=== PATIENT | female | born 1960 | race Caucasian/White ===

== ENCOUNTER 2019-10-26 13:04 | Outpatient (CLI) | payer MEDICARE, MEDICAID, SELFPAY ==
--- NOTE | 2019-10-26 13:13 | MM_ITS ---
WS: [id number] SCREENING DIGITAL MAMMOGRAM WITH CAD HISTORY: SCREENING COMPARISON: 10/24/2018 and 08/30/2017 Bilateral CC and MLO views submitted. Computer aided detection analyzed. Breast composition: There are scattered areas of fibroglandular density. No suspicious masses, microc alcifications or architectural distortion. MM/[place] [id number] IMPRESSION: BI-RADS: 1-Negative FOLLOW UP: 1 Year Follow-up
== END 2019-10-26 13:05 | disposition home or self-care (01) ==
LOC: RADSHAW 13:11
PROVIDERS: PCP Family Medicine; Visit Provider Family Medicine
DX: Z12.31 Encounter for screening mammogram for malignant neoplasm of breast (principal)
CPT/HCPCS: 77067

== ENCOUNTER 2020-10-02 15:41 | Outpatient (CLI) | payer MEDICARE, MEDICAID, SELFPAY ==
--- NOTE | 2020-10-02 15:52 | MR_ITS ---
WS: [id number] MRI LEFT SHOULDER NONCONTRAST TECHNIQUE: Sagittal T2, coronal T1, T2 and proton density imaging. Axial gradient PDE imaging. CLINICAL INFORMATION: SHOULDER JOINT PAIN,LEFT COMPARISON: MRI 6 018 FINDINGS: Rotator cuff anchors are new compared to previous. Susceptibility artifact degrades images. Mild dege nerative arthritis of the AC joint. Mild downsloping acromion. Slight subacromial spurring. Trace sub acromial subdeltoid fluid. No evidence of recurrent rotator cuff tear. Normal infraspinatus and teres minor. Normal subscapulari s. Tiny biceps tendon within the bicipital groove unchanged from previous. Intra-articular biceps ten don appears intact. Normal biceps labral anchor. Glenoid labrum appears grossly intact. MR/MR shoulder LT wo con* [id number] IMPRESSION: 1. Rotator cuff anchors are new from previous. No evidence of recurrent rotato r cuff tear. 2. Mild degenerative arthritis AC joint with a small amount of subacromial/sub deltoid fluid. Slight subacromial spurring. 3. Tiny biceps tendon within the bicipital groove unchanged from previous. 4. No other significant change from previous.
== END 2020-10-02 15:42 | disposition home or self-care (01) ==
LOC: RADSHAW 15:45
PROVIDERS: PCP Nurse Practitioner Family; Visit Provider Nurse Practitioner Family
DX: M25.512 Pain in left shoulder (principal); M19.012 Primary osteoarthritis, left shoulder
CPT/HCPCS: 73221

== ENCOUNTER 2020-11-04 11:12 | Outpatient (CLI) | payer MEDICARE, MEDICAID, SELFPAY ==
--- NOTE | 2020-11-04 11:16 | MM_ITS ---
WS: [id number] BILATERAL SCREENING DIGITAL MAMMOGRAM WITH CAD HISTORY: SCREENING COMPARISON: 10/26/2019 and 10/24/2018 Bilateral CC and MLO views submitted. Computer aided detection analyzed. Breast composition: There are scattered areas of fibroglandular density. No suspicious masses, microc alcifications or architectural distortion. Stable small cluster of calcifications in the lateral LEFT breast. MM/[place] [id number] IMPRESSION: BI-RADS: 2-Benign FOLLOW UP: 1 Year Follow-up
== END 2020-11-04 11:13 | disposition home or self-care (01) ==
LOC: RADSHAW 11:15
PROVIDERS: PCP Nurse Practitioner Family; Visit Provider Nurse Practitioner Family
DX: Z12.31 Encounter for screening mammogram for malignant neoplasm of breast (principal)
CPT/HCPCS: 77067

== ENCOUNTER 2020-11-07 07:45 | Outpatient (CLI) | payer MEDICARE, MEDICAID, SELFPAY ==
--- NOTE | 2020-11-07 08:02 | US_ITS ---
WS: [id number] INDICATION: Lump left upper arm TECHNIQUE: Ultrasound area of concern left axilla and left scapula patient directed FINDINGS: Ultrasound areas of concern left axilla and left scapula. A few prominent left axillary lym ph nodes with preserved fatty hilum and normal cortex. Largest measures 1.8 x 0.7 x 1.3 cm. No pathol ogic lymph nodes. In the area of the left scapula, normal underlying subcutaneous fat. Suspected lipoma corresponds to the area of palpable concern measuring 1.9 x 2.1 x 0.7 CM. US/US soft tissue/extremity [id number] IMPRESSION: 1. Normal left axillary lymph nodes. 2. Suspected small benign lipoma in the area of palpable concern at the scapul a described above
== END 2020-11-07 07:46 | disposition home or self-care (01) ==
LOC: RAD 07:51
PROVIDERS: PCP Nurse Practitioner Family; Visit Provider Nurse Practitioner Family
DX: R22.32 Localized swelling, mass and lump, left upper limb (principal)
CPT/HCPCS: 76882

== ENCOUNTER 2020-12-09 13:40 | Outpatient (CLI) | payer MEDICARE, MEDICAID, SELFPAY ==
--- NOTE | 2020-12-09 14:00 | CT_ITS ---
WS: [id number] CT CHEST WITH INTRAVENOUS CONTRAST HISTORY: R22.2 - Localized swelling, mass and lump TECHNIQUE: Contiguous 5 mm axial imaging performed on the thorax. Coronal and sagittal reformats are submitted. All CT scans at [facility] use at least one of these dose optimization techniq ues: automated exposure control; mA and/or kV adjustment per patient size (includes targeted exams wh ere dose is matched to clinical indication); or iterative reconstruction. CONTRAST: Omnipaque 300; 75 mL IV. DLP: 524.98 mGycm COMPARISON: None available. Lungs and central airway: Severe centrilobular and paraseptal emphysematous changes. Focal scarring a nd gliosis at the apices. No pulmonary mass or pneumonia. Pleura: Normal. No pleural effusion. Heart and pericardium: Normal size heart with no pericardial effusion. Mediastinum and chico: No mediastinum or hilar adenopathy. Vessels: Mild atherosclerosis thoracic aorta. No aneurysm. Normal size pulmonary artery. Chest wall and lower neck: Very small fat containing mass along the posterior inferior LEFT scapula m easures 20 x 10 mm. Most consistent with a lipoma in the latissimus dorsi muscle. This is closely ass ociated with the marker placed in the palpable area. There is an otherwise no asymmetry of the muscle s or additional soft tissue masses. Upper abdomen: Numerous scattered hepatic cysts. There is an additional area of intense enhancement o n arterial phase measuring 14 mm in the posterior RIGHT lobe the liver consistent with a hemangioma. Osseous structures: Prior LEFT rotator cuff repair. Single anchor is noted in the humeral head. CT/CT chest w con* [id number] IMPRESSION: 1. Palpable area along the posterior lateral LEFT back corresponds to a lipoma within the LEFT latissimus dorsi muscle. Lipoma measures 20 x 10 mm. 2. Severe centrilobular and paraseptal emphysema. 3. Hepatic cysts and hepatic hemangioma.
[2020-12-09 14:12] LABS: Blood Urea Nitrogen 14 mg/dL (8-23); Glomerular Filtration Rate 85.4 mL/min (90-130)
[2020-12-09] MEDS: iohexol 300 mg/mL 100 mL Btl IV (14:20)
== END 2020-12-09 13:41 | disposition home or self-care (01) ==
PROVIDERS: PCP Nurse Practitioner Family; Visit Provider Surgery
DX: R22.2 Localized swelling, mass and lump, trunk (principal); J43.9 Emphysema, unspecified; K76.89 Other specified diseases of liver; D18.09 Hemangioma of other sites
CPT/HCPCS: 71260; 82565; 84520; Q9967

== ENCOUNTER → 2020-12-30 09:13 | Outpatient (BNVA) | payer MEDICARE, MEDICAID, SELFPAY | PROVIDERS: PCP Nurse Practitioner Family; Visit Provider Surgery | DX: Z20.822 Contact with and (suspected) exposure to COVID-19 (principal); R22.32 Localized swelling, mass and lump, left upper limb | CPT/HCPCS: 87635 ==

== ENCOUNTER 2021-01-05 07:33 | Day surgery (SDC) | payer MEDICARE, MEDICAID, SELFPAY ==
[2021-01-02 14:23] VITALS: BMI 19.2
[2021-01-05] VITALS (7 sets, daily range): BP systolic 70–106; BP diastolic 46–59; PULSE 59–70; RESP 16–20; TEMP 36.4–36.5; O2SAT 96–98
[2021-01-05] MEDS: sodium chloride 0.9% 1,000 ML 30 ML IV (08:09)
--- NOTE | 2021-01-05 08:56 | ANES.PREANE2 ---
Pre-Anesthetic Assessment Pre-Anesthetic Assessment: Height/Weight: Height 1.47 m Weight 41.73 kg Temp Pulse Resp BP Pulse Ox 97.5 F L 67 18 106/52 97 01/05/21 07:59 01/05/21 07:59 01/05/21 07:59 01/05/21 07:59 01/05/21 07:59 Preop Diagnosis: Left-sided torso masses Proposed Procedure: Operation Date: 01/05/21 08:55 Proposed Procedures p EXCISION OF LEFT SIDED TORSO MASSES 48790 R22.32(Left) - Nolan Juan MD Was Beta Dayne taken within 24 hours: N/A Was Clonidine taken within 24 hours: N/A Last intake: Intake Last Liquid Date 01/04/21 Last Liquid Time 22:30 Last Solid Date 01/04/21 Last Solid Time 22:30 Social: Social History: Tobacco and No alcohol Exam: Pre-Anes Outpt Exam: alert, oriented x 3 and regular rate & rhythm Airway: Submandibular: WNL Cervical ROM: WNL MP: 2 Dentition: Chipped Pulmonary: Pulmonary: COPD GI: GI: GERD Musc/skel: Musc/skel: Fibromyalgia Anesthetic Plan: ASA status: 3 Anesthesia: Choice Risk of > 500 ml blood loss (7ml/kg in children): No Meds/Allergies Current Medications: Current Medications Generic Name Dose Route Start Last Admin Trade Name Freq PRN Reason Stop Dose Admin Sodium Chloride 1,000 mls @ 30 ml s/hr 01/05/21 08:00 01/05/21 08:09 Sodium Chloride 0.9% IV 01/06/21 07:59 30 mls/hr .Q24H ZHEN Administration PFSH Anesthesia PFSH: Family History Other CAD (coronary artery disease) Cancer Dementia Diabetes Stroke Denies family history of Psychiatric illness Lung disease Social History Alcohol intake: never Lives independently: Yes Data Anesthesia Cardiac Studies: No Data to Display
--- NOTE | 2021-01-05 09:07 | W.PM.OPSUD ---
Surgery/Procedure H&P Update DATE OF PROCEDURE: January 05, 2021 DATE H&P PERFORMED: 12/25/20 H&P UPDATE INFORMATION: I have reviewed H&P completed within last 30 days, I have examined patient prior to procedure and No changes to prior documentation PREOP DIAGNOSIS: Left-sided torso masses PRIMARY INDICATION FOR PROCEDURE: The same. PLANNED PROCEDURE: Operation Date: 01/05/21 08:55 Proposed Procedures p EXCISION OF LEFT SIDED TORSO MASSES 84109 R22.32(Left) - Nolan Juan MD
[2021-01-05] MEDS: clindamycin 600 MG/50 ML PREMIX 100 MG IV (09:10)
[2021-01-05] MEDS: lidocaine 2% INJ 20 mL INJECTION (09:24)
--- NOTE | 2021-01-05 09:38 | PM.OP ---
Operative Report Date of procedure: January 05, 2021 Pre-op Diagnosis: Left-sided torso masses Post-op diagnosis: other (Left-sided torso lipoma 3 x 3 cm) Procedure Done: Excision of left sided torso lipoma Specimens removed/disposition: Lipoma 3 x 3 cm Surgeon: Nolan Juan Youth Services Librarian: bulk mail technician Raul, medical student Lina Deluna Circulating nurse John Diego Anesthesia: General (agriculture department chair Brandon) Estimated blood loss (mL): 5 Condition: stable Disposition: same day Brief History: Symptomatic left-sided torso mass Procedure: After identifying the patient holding area, left-sided torso/back mass was marked before the procedure by myself, patient was then taken to the operative suite, was placed in right lateral position, IV antibiotics were given per protocol,IV propofol was infused by the anesthesia provider, prep and drape of the left upper and mid back regions were done under the usual sterile technique. All pressure points were already padded. And patient was secured appropriately to the bed. Time-out was done verifying the patient's name/date of /planned procedure and destination after the procedure, all were in agreement. After palpation of the mass. Infiltration of lidocaine 2%. I did a transverse incision on top of the mass. I was able to dissect using sharp dissection and the whole lipomatous mass was excised from the surrounding tissues, mostly subcutaneous in location, measuring 3 x 3 cm. The mass was dissected and sent for permanent pathology after being passed to the circulating nurse. Thorough irrigation of the cavity was done and hemostasis, followed by deep dermal closure by 3-0 Vicryl, then 4-0 Monocryl for subcuticular closure. Followed by surgical glue. Followed by pressure dressing. Patient tolerated the procedure well, count of instruments, needles and sponges were completed at the end of the procedure. And then patient was taken to the recovery area in stable condition. I was present for the whole entire procedure
--- NOTE | 2021-01-05 15:26 | ANE.PACU2 ---
Inpatient post-anesthesia follow up: Airway intact: Yes Vital signs: Temperature 97.7 F Pulse Rate 59 Respiratory Rate 18 Blood Pressure 88/57 Pulse Oximetry 98 Oxygen Delivery Me thod Room Air Oxygen Flow Rate Fraction of Inspir ed Oxygen Hydration adequate: Yes Nausea and vomiting: No Pain level: 2 Mental status: Baseline
== END 2021-01-05 10:50 | disposition home or self-care (01) ==
PROVIDERS: PCP Nurse Practitioner Family; Visit Provider Surgery
PROC: (CPT 11403; principal; 2021-01-05 08:45)
DX: D17.1 Benign lipomatous neoplasm of skin and subcutaneous tissue of trunk (principal); J44.9 Chronic obstructive pulmonary disease, unspecified; K21.9 Gastro-esophageal reflux disease without esophagitis; M79.7 Fibromyalgia
CPT/HCPCS: 11403; 12032; 88304; 88307; J2250; J2704; J3490; J7030

== ENCOUNTER 2021-11-06 13:26 | Outpatient (CLI) | payer MEDICARE, MEDICAID, SELFPAY ==
--- NOTE | 2021-11-06 13:39 | MM_ITS ---
WS: [id number] BILATERAL 3D TOMOSYNTHESIS DIGITAL SCREENING MAMMOGRAPHY WITH CAD CLINICAL INFORMATION: SCREENING HISTORY: Screening mammogram. No current complaints. COMPARISON: November 04, 2020 TECHNIQUE: Bilateral CC and MLO views. FINDINGS: Scattered fibroglandular densities bilaterally. A few incidental punctate calcifications. No suspicio us focal mass, asymmetry, calcifications, or architectural distortion. No evidence of malignancy. MM/[place] [id number] IMPRESSION: BI-RADS: 2-Benign FOLLOW UP: 1 Year Follow-up Recommend return to annual screening mammography.
== END 2021-11-06 13:27 | disposition home or self-care (01) ==
PROVIDERS: PCP Family Medicine; Visit Provider Nurse Practitioner Family
DX: Z12.31 Encounter for screening mammogram for malignant neoplasm of breast (principal)
CPT/HCPCS: 77063; 77067

== ENCOUNTER 2022-01-29 15:34 | Outpatient (CLI) | payer MEDICARE, MEDICAID, SELFPAY ==
--- NOTE | 2022-01-29 16:13 | XRR_ITS ---
PROCEDURE INFORMATION: Exam: XR Left Hip Exam date and time: 01/29/2022 4:14 PM Age: 62 years old Clinical indication: Hip pain; Left hip; Additional info: Groin pain, left TECHNIQUE: Imaging protocol: Radiologic exam of the Left hip. Views: 2 or 3 views hip with pelvis when performed. COMPARISON: CT lumbar spine w con [id number] 04/16/2015 10:45 AM FINDINGS: Bones/joints: Negative for fracture. Joint space is preserved. Soft tissues: Unremarkable. XR/XR hip LT 2-3V wo/w pel* [id number] IMPRESSION: Unremarkable radiographs of the left hip.
== END 2022-01-29 15:35 | disposition home or self-care (01) ==
PROVIDERS: PCP Family Medicine; Visit Provider Family Medicine
DX: R10.32 Left lower quadrant pain (principal); M25.552 Pain in left hip
CPT/HCPCS: 73502

== ENCOUNTER 2022-03-31 12:51 | Outpatient (CLI) | payer MEDICARE, MEDICAID, SELFPAY ==
--- NOTE | 2022-03-31 12:59 | MR_ITS ---
WS: [id number] MRI LUMBAR SPINE NONCONTRAST HISTORY: LEFT LUMBAR RADICULOPATHY COMPARISON: 09/12/2014 TECHNIQUE: Sagittal and axial multisequence imaging is submitted. Normal lumbar alignment with no compression fractures or marrow edema. Mild disc desiccation at L4-5. Conus terminates normally at L1. L1-L2: Normal. L2-L3: Mild ligamentum flavum and facet arthritis. L3-L4: Moderate bilateral ligamentum flavum and facet joint arthritis. L4-L5: Mild annular disc bulging. Mild ligamentum flavum and facet arthritis. Mild encroachment into the thecal sac and subarticular recess narrowing. L5-S1: No stenosis. Ligamentum flavum and facet arthritis. Small facet joint cyst on the RIGHT. Small cyst posterior to S2. MR/MR lumbar spine wo con* [id number] IMPRESSION: 1. Mild central and subarticular recess narrowing at L4-5. Mild encroachment u ellis the traversing L5 nerve roots. 2. No high-grade stenosis.
== END 2022-03-31 12:52 | disposition home or self-care (01) ==
LOC: RAD 12:51
PROVIDERS: PCP Family Medicine; Visit Provider Family Medicine
DX: M54.16 Radiculopathy, lumbar region (principal); M48.061 Spinal stenosis, lumbar region without neurogenic claudication
CPT/HCPCS: 72148

== ENCOUNTER → 2022-05-13 10:05 | Outpatient (BNVA) | payer MEDICARE, MEDICAID, SELFPAY | PROVIDERS: PCP Family Medicine; Visit Provider Orthopaedic Surgery | DX: M48.062 Spinal stenosis, lumbar region with neurogenic claudication (principal) | CPT/HCPCS: 72110; 99204 ==

== ENCOUNTER 2022-09-15 14:58 | Observation (INO) | payer MEDICARE, MEDICAID, SELFPAY ==
[2022-09-14 09:54] VITALS: BMI 21.9
--- NOTE | 2022-09-14 10:27 | P.ANESASSM_ITS ---
Pre-Anesthetic Assessment Height/Weight: Height 1.47 m Weight 47.627 kg Operation Date: 09/15/22 13:10 Proposed Procedures p Anterior and posterior colporrhaphy 36342, Sling 77241, N99.3(Not Applicable) - Papo Dobbins MD s Posterior Repair Posterior Colporrhaphy(Not Applicable) - Papo Dobbins MD s Sling(Not Applicable) - Papo Dobbins MD Familial anesthetic complications: None Social No alcohol and No tobacco former smoker Exam alert, oriented x 3, clear to auscultation bilaterally and regular rate & rhythm Airway Mallampati: Class II Dentition: chipped and partials Pulmonary Chronic Obstructive Pulmonary Disease (Severe in L lung) CV/HEM None reported None reported GI Gastroesophageal Reflux Disease Metabolic None reported Musc/skel Fibromyalgia Neuropsych None reported Anesthetic Plan ASA status: 3 Anesthesia: General Risk of > 500 ml blood loss (7ml/kg in children): No Medications/Allergies Home Medications Medication Instructions Recorded Confirmed Last Taken Type estradiol 1 mg tablet 1 mg PO DAILY 11/27/20 09/14/22 01/04/21 History fluticasone propionate 50 1 spray intranasal DAILY 11/27/20 09/14/22 01/04/21 History mcg/actuation nasal spray,suspension loratadine 10 mg tablet (Allergy 10 mg PO DAILY 11/27/20 09/14/22 01/04/21 History Relief (loratadine)) omeprazole 40 mg capsule,delayed 40 mg PO DAILY 11/27/20 09/14/22 01/04/21 History release albuterol sulfate 90 mcg/actuation 1 puff inhalation PRN 01/02/21 09/14/22 01/04/21 History aerosol inhaler umeclidinium 62.5 mcg/actuation inhalation 01/02/21 09/14/22 01/04/21 History blister powder for inhalation (Incruse Ellipta) diclofenac potassium 50 mg tablet 50 mg PO DAILY PRN Dry Eyes 08/04/22 09/14/22 Unknown History triamcinolone acetonide 0.1 % 1 applic dental BID PRN Mouth 08/04/22 09/14/22 Unknown History dental paste Irritation baclofen 10 mg tablet 10 mg PO .PRN 08/16/22 09/14/22 Unknown History Eye Allergy Relief 05/30/23 Unknown History artificial tears(hypromellose) 0.3 1 drp ophthalmic (eye) BID PRN Dry 09/14/22 09/14/22 Unknown History % eye drops Eyes ipratropium bromide 42 mcg (0.06 intranasal 3XD dry eyes 09/14/22 Unknown History %) nasal spray Allergies Allergy/AdvReac Type Severity Reaction Status Date / Time amoxicillin Allergy Intermediate Unknown Verified 09/14/22 08:19 cinnamon Allergy ADR-Itching Verified 09/14/22 08:19 [facility] Anesthesia Medical History Fibromyalgia Mass on back Seasonal allergies Surgical History History of colonoscopy History of eyelid surgery 2013 History of hysterectomy 2000 History of rotator cuff surgery left History of surgery cyst removal History of surgery on right wrist cyst removal Family History Mother Heart disease Hypertension Stroke Father Heart disease Hypertension Stroke Sister Hypertension Brother Hypertension Family/Other Breast cancer Aunt/Paternal Other CAD (coronary artery disease) Cancer Dementia Diabetes Denies family history of Colon cancer Ovarian cancer Uterine cancer Thyroid disease Social History Substance/Drug Use: never Data Anesthesia Cardiac Studies: No Data to Display
[2022-09-14 10:47] LABS: Add Urine Microscopic? NO; Charge for UA Resulting for Rev
[2022-09-14 10:49] LABS: Basophils # 0.1 10^3/uL (0.0-0.1); Basophils % 0.6 %; Eosinophils # 0.1 10^3/uL (0.0-0.8); Hematocrit 37.9 % (37.0-47.0); Hemoglobin 12.2 g/dL (11.5-15.3); Lymphocytes # 1.8 10^3/uL (0.8-4.8); Mean Corpuscular HGB Conc 32.2 g/dL (30.0-36.0); Mean Corpuscular Hemoglobin 28.7 pg (28.0-34.0); Mean Corpuscular Volume 89.2 fl (81-99); Mean Platelet Volume 9.9 fL (7.4-10.4); Monocytes # 0.6 10^3/uL (0.2-0.9); Neutrophils # 6.26 10^3/uL (1.8-7.7); Neutrophils % 70.9 %; Nucleated Red Blood Cells % 0 %; Platelet Count 341 10^3/cmm (130-400); Red Blood Count 4.25 10^6/uL (4.1-5.3); Red Cell Distribution Width 13.2 % (12.1-15.1); White Blood Count 8.8 10^3/uL (4.0-10.0)
[2022-09-14 10:54] LABS: Bilirubin Urine Neg (Negative); Blood Urine Neg (Negative); Glucose Urine UA Norm (Normal); Ketones Urine Negative (Negative); Leukocyte Esterase Urine Negative (Negative); Nitrate Urine Negative (Negative); Protein Urine Neg (Negative); Specific Gravity, Urine 1.015 (1.005-1.030); Urine Appearance Clear (CLEAR); Urine Color Yellow (Yellow); Urobilinogen Urine Norm (Negative); pH Urine 6 (5-7)
[2022-09-14 11:14] LABS: Alanine Aminotransferase 11 U/L (0-33); Albumin Level 4.5 g/dL (3.5-5.2); Alkaline Phosphatase 69 U/L (35-105); Anion Gap 14.2 (5-19); Aspartate Amino Transferase 13 U/L (0-32); Blood Urea Nitrogen 16 mg/dL (8-23); Calcium 8.9 mg/dL (8.5-10.5); Carbon Dioxide 28 mmol/L (22-29); Chloride 102 mmol/L (98-107); Globulin 2.8 g/dL (1.3-4.6); Glucose 83 mg/dL (65-115); Osmolality Calculated 290 mOsm/kg (285-295); Potassium 4.2 mmol/L (3.5-5.1); Sodium 140 mmol/L (136-145); Total Bilirubin 0.3 mg/dL (0.15-1.2); Total Protein 7.3 g/dL (6.6-8.7)
[2022-09-15] VITALS (15 sets, daily range): BP systolic 91–140; BP diastolic 50–81; PULSE 56–83; RESP 12–17; TEMP 36.1–36.4; O2SAT 95–100
--- NOTE | 2022-09-15 11:20 | W.PM.OPSUD ---
Surgery/Procedure H&P Update DATE OF PROCEDURE: September 15, 2022 DATE H&P PERFORMED: 09/14/22 H&P UPDATE INFORMATION: I have reviewed H&P completed within last 30 days, I have examined patient prior to procedure and No changes to prior documentation PREOP DIAGNOSIS: Rectocele stage III, cystocele stage I, stress incontinence PLANNED PROCEDURE: Operation Date: 09/15/22 12:20 Proposed Procedures p Anterior and posterior colporrhaphy 82663, Sling 68104, N99.3(Not Applicable) - Papo Dobbins MD s Posterior Repair Posterior Colporrhaphy(Not Applicable) - Papo Dobbins MD s Sling(Not Applicable) - Papo Dobbins MD
[2022-09-15] MEDS: sodium chloride 0.9% 500 ML IV (11:25)
--- NOTE | 2022-09-15 11:25 | P.ANESUD_ITS ---
Pre-Anesthetic Update Pre-Anesthetic Assessment: Date of Surgery/Procedure: 09/15/22 Preop Renetta gnosis: Rectocele stage III, cystocele stage I, stress incontinence Proposed Procedure: Operation Date: 09/15/22 12:20 Proposed Procedures p Anterior and posterior colporrhaphy 47977, Sling 01285, N99.3(Not Applicable) - Papo Dobbins MD s Posterior Repair Posterior Colporrhaphy(Not Applicable) - Papo Dobbins MD s Sling(Not Applicable) - Papo Dobbins MD Any changes to Pre-Anesthetic Assessment?: No Last Intake: Intake Last Liquid Date 09/14/22 Last Liquid Time 23:00 Last Solid Date 09/14/22 Last Solid Time 23:00 Labs Last 48hrs: Short CBC 09/14/22 Range/Units 10:25 WBC 8.8 (4.0-10.0) 10^3/ uL Hgb 12.2 (11.5-15.3) g/dL Hct 37.9 (37.0-47.0) % MCV 89.2 (81-99) fl Plt Count 341 (130-400) 10^3/c mm Neut % (Auto) 70.9 % Neut # (Auto) 6.26 (1.8-7.7) 10^3/u L BMP 09/14/22 10:25 Sodium 140 Potassium 4.2 Chloride 102 Carbon Dioxide 28 BUN 16 Creatinine 0.5 Glucose 83 Calcium 8.9 Liver Function 09/14/22 Range/Units 10:25 Total Bilirubin 0.3 (0.15-1.2) mg/dL AST 13 (0-32) U/L ALT 11 (0-33) U/L Alkaline Phosphata se 69 (35-105) U/L Albumin 4.5 (3.5-5.2) g/dL Urine 09/14/22 Range/Units 10:25 Urine Color Yellow (Yellow) Urine Appearance Clear (CLEAR) Urine pH 6 (5-7) Ur Specific Gravit y 1.015 (1.005-1.030) Urine Protein Neg (Negative) Urine Glucose (UA) Norm (Normal) Urine Ketones Negative (Negative) Urine Nitrate Negative (Negative) Urine Bilirubin Neg (Negative) Ur Leukocyte Yoanna ase Negative (Negative) Blood Bank 09/14/22 10:25 Blood Type O Positive Rho(D) Type Positive Antibody Screen Negative Vitals: Temperature 97.5 F L 09/15/22 11:04 Temperature Source Temporal Artery S can 09/15/22 11:04 Pulse Rate 70 09/15/22 11:04 Respiratory Rate 17 09/15/22 11:04 Blood Pressure 140/65 09/15/22 11:04 Blood Pressure Zita n 90 09/15/22 11:04 Pulse Oximetry 96 09/15/22 11:04 Oxygen Delivery Me thod Room Air 09/15/22 11:09 Exam: Pre-Anes Outpt Exam: alert, oriented x 3, clear to auscultation bilaterally and regular rate & rhythm Cardiac Studies: No Data to Display
[2022-09-15] MEDS: enoxaparin 30 mg/0.3 mL Syringe SUBCUT (11:26)
[2022-09-15] MEDS: vancomycin 1,000 MG in sodium chloride 0.9% 250 ML 250 MG IV (11:43)
[2022-09-15] MEDS: sodium chloride 0.9% 1,000 ML 30 ML IV (11:44)
[2022-09-15] MEDS: levofloxacin-dextrose 5 % 500 MG/100 ML PREMIX 100 MG IV (12:00)
[2022-09-15] MEDS: estrogens Conjugated Cream 30 gm 1 APPLIC VAGINAL (12:27)
[2022-09-15] MEDS: lidocaine-epi 2% 20 mL INJ INJECTION (12:27)
--- NOTE | 2022-09-15 14:05 | P.OP_ITS ---
Operative Report Date of procedure: September 15, 2022 Pre-op diagnosis: Preop Diagnosis Rectocele stage III, cystocele stage I, stress incontinence Post-op diagnosis: Same as above Post-op findings: Rectocele and 60 Procedure done: Anterior colporrhaphy augmented with allograft. Single incision mid urethral sling. Posterior colporrhaphy. Cystoscopy Implants: Coloplast Altis single incision mid urethral sling Surgeon: Papo Dobbins MD Estimated blood loss (mL): 50 Urine output (mL): 150 Complications: None Procedure: After obtaining informed consent, the patient was taken to the operating room and placed in the supine position, given general anesthesia, and prepped and draped in sterile fashion. The abdomen, vulva and vagina were prepped and draped in a sterile manner. A time out procedure was performed. The anterior vaginal mucosa beneath the midurethra was infiltrated with 2% lidocaine with epinephrine. A vertical midline incision was made beneath the midurethra, nearly 1.5 cm length. Careful submucosal dissection was performed bilaterally up to the interior portion of the inferior pubic ramus. The insertion of adductor longus tendon on the patient?s pubic ramus was identified as reference land dav. Palpated the notch along the internal edge of ischiopubic ramus where the adductor longus tendon and the inferior pubic ramus meet. The Altis single incision sling (SIS) was selected. Then the needle of the SIS inserted aiming at the location of this notch. One of the integrated self- fixating tips place onto the needle by sliding it over the end of the needle. The needle/sling assembly was inserted toward the location of identified reference notch making sure that the flat of the handle is perpendicular to the desired path. The needle was tracked along the posterior surface of the ischiopubic ramus until the midline dav on the mesh is approximately at the midline position under the urethra. The needle was removed and the same was repeated on the contralateral side until the appropriate sling tension under the urethra was achieved ensuring that the mesh lays flat. The needle was removed and vaginal incision was closed in a running interlocking fashion with 2-0 Vicryl. The vaginal mucosa was then injected in the midline with normal saline. The vaginal mucosa was scored in the midline with the Bovie approximately 1 cm medial to the urethral meatus to 1 cm distal to the vaginal cuff. This vaginal mucosa was then undermined and then incised in the midline with the Metzenbaum scissors. The lateral aspects of the vaginal mucosa were then grasped with the Allis clamps and the vaginal mucosa was then dissected off the underlying fascia with the Metzenbaum scissors. Again, there was noted to be quite a bit of oozing at the incision, which was controlled with cautery. After adequate dissection was performed, bilaterally. An Coloplast allograft was modified at time of application to fit spacea, 3 x 3 cm piece . The allograft placed in front of cystocele ready to be implanted facing the vagina mucosa. Suture is placed at distal end of graft and placed towards vaginal cuff. Final suture is placed on proximal portion of the graft to complete the placement overlying the bladder. Then Interrupted vertical mattress sutures of 0 Vicryl were used to elevate the cystocele superiorly. The excessive vaginal mucosa was then trimmed with the Metzenbaum scissors and the vaginal mucosa was then reapproximated in the running interlocking fashion with 2-0 Vicryl. Then proceeded to perform the posterior colporrhaphy. A solution was infiltrated under the posterior vaginal mucosa midline and into the perineal body. A transverse incision was cut in the perineum. The posterior vaginal wall was opened vertically and midline up to the apex of the rectocele. The cut edges were held and splayed laterally with a s eries of Allis clamps. The open vaginal mucosa was then dissected laterally with a combination of sharp and blunt dissection, exposing the perirectal fascia. The perirectal fascia was then reapproximated with interrupted #2-0 Vicryl sutures to draw the lateral folds together and tuck the rectocele back. Deep interrupted sutures of #0 Vicryl were used to reapproximate the fibers of the levator ani muscles. The excess vaginal mucosa was trimmed. The posterior vaginal wall was closed with a running locked #0 Vicryl to the hymenal tags. The superficial perineal muscles were closed with running unlocked #0 Vicryl and the perineal skin was closed with running subcuticular #2-0 Vicryl. Then the Tang catheter was removed and cystoscope was inserted. The bladder was filled with sterile water. Complete evaluation of the bladder mucosa was performed noting no lacerations, dimpling, tears, bleeding of the mucosa or muscular layers. Both ureteral orifices were identified. Prompt excretion of urine from both ureteral orifices was noted. Cystoscope was withdrawn. The Tang catheter was replaced. Excellent hemostasis was obtained. A vaginal pack is placed overnight as postoperative support for the vaginal tissues after graft placement and closure of vaginal incisions. Sponge, lap, needle, and instrument counts were correct times three. The patient was taken to the recovery room, awake and in stable condition. This documentation was created by [employer] maintenance shop welder software (known for inherent maintenance shop welder error). Every effort was made to assure accuracy of maintenance shop welder. Any obvious errors or omissions should be clarified with the author of the document.
--- NOTE | 2022-09-15 17:00 | ANE.PACU2 ---
Inpatient post-anesthesia follow up: Airway intact: Yes Vital signs: Temperature 97.1 F Pulse Rate 82 Respiratory Rate 18 Blood Pressure 116/72 Pulse Oximetry 95 Oxygen Delivery Me thod Room Air Oxygen Flow Rate 6 Fraction of Inspir ed Oxygen Hydration adequate: Yes Nausea and vomiting: Yes Pain level: 1 Mental status: Baseline
[2022-09-15] MEDS: docusate sodium 100 mg Capsule PO (18:14)
[2022-09-15] MEDS: dextrose 5%-lactated ringers 1,000 ML 125 ML IV (19:15)
[2022-09-15] MEDS: ketorolac 30 mg/mL INJ IVP (19:44)
[2022-09-16 00:06] VITALS: BP 116/73; PULSE 78; RESP 15; TEMP 36.6; O2SAT 96
[2022-09-16] MEDS: ketorolac 30 mg/mL INJ IVP (03:55)
[2022-09-16] MEDS: dextrose 5%-lactated ringers 1,000 ML 125 ML IV (03:55)
[2022-09-16 04:00] VITALS: BP 111/69; PULSE 76; RESP 15; TEMP 36.4; O2SAT 96
[2022-09-16 05:03] LABS: Hemoglobin 9.2 g/dL (11.5-15.3); Mean Corpuscular HGB Conc 31.7 g/dL (30.0-36.0); Mean Corpuscular Hemoglobin 28.1 pg (28.0-34.0); Mean Corpuscular Volume 88.7 fl (81-99); Mean Platelet Volume 9.4 fL (7.4-10.4); Platelet Count 247 10^3/cmm (130-400); Red Blood Count 3.27 10^6/uL (4.1-5.3); Red Cell Distribution Width 13.2 % (12.1-15.1); White Blood Count 10.3 10^3/uL (4.0-10.0)
--- NOTE | 2022-09-16 05:03 | PC.NURSE ---
Vaginal pack removed @0500 on 09-16-2022, small amount of blood noted on packing.
--- NOTE | 2022-09-16 09:51 | PM.OBGYDC ---
Discharge Providers WEIGHT CONTROL LECTURER Date of Admission: 09/15/22 14:58 Date of Discharge: 09/16/22 Attending Provider at Admission: Papo Dobbins MD Attending Provider at Discharge: Papo Dobbins MD Primary WEIGHT CONTROL LECTURER: Papo Dobbins MD Primary Care Provider: Eliceo Polanco MD Reason for Visit Reason for Visit: [id number]; N99.3 Hospital Course Hospital Course Mrs. Pierson is a 62-year-old female with a history of vaginal prolapse with rectocele and cystocele. Admitted for planned anterior colporrhaphy augmented with allograft, single incision mid urethral sling, and posterior colporrhaphy. The procedures were performed without complication. Overnight observation uneventful. Ambulating without difficulty. Tolerating diet well. Adequate urine output. PVR within normal limits. She was counseled regarding pelvic rest for 6 weeks (no sex, no tampons, no vaginal douches). Return to the emergency room if any fever, increased bleeding or pain. Physical Exam Narrative: GA: Alert and oriented ?3. HEENT: WNL. Heart: Regular rate and rhythm. Lungs: Clear to auscultation bilaterally. Abdomen: Bowel sounds present, minimal tenderness. LICENSED MASTER SOCIAL WORKER: spotting bleeding. Extremities: No edema, no cyanosis, no calves pain. Urinary Catheter Management: Tang: Cath Placed During This Visit: yes, but has since been removed by the nurse Reason for Continuing Indwelling Catheter: Decision to DC Catheter Urinary Catheter Date of Insertion: 09/15/22 Urinary Catheter Time of Insertion: 12:21 Date Urinary Catheter Removed: 09/16/22 Time Urinary Catheter Discontinued: 05:00 History History History 2 Term 2 0 Miscarriages/Ectopic 0 Living Children 2 Discharge Data Studies Completed and Pending Laboratory Results WBC 10.3 10^3/uL (4.0-10.0) H 09/16/22 04:55 RBC 3.27 10^6/uL (4.1-5.3) L 09/16/22 04:55 Hgb 9.2 g/dL (11.5-15.3) L 09/16/22 04:55 Hct 29.0 % (37.0-47.0) L 09/16/22 04:55 MCV 88.7 fl (81-99) 09/16/22 04:55 MCH 28.1 pg (28.0-34.0) 09/16/22 04:55 MCHC 31.7 g/dL (30.0-36.0) 09/16/22 04:55 RDW 13.2 % (12.1-15.1) 09/16/22 04:55 Plt Count 247 10^3/cmm (130-400) 09/16/22 04:55 MPV 9.4 fL (7.4-10.4) 09/16/22 04:55 Neut % (Auto) 70.9 % 09/14/22 10:25 Lymph % (Auto) 20.0 % 09/14/22 10:25 Dickenson % (Auto) 7.0 % 09/14/22 10:25 Eos % (Auto) 1.0 % 09/14/22 10:25 Baso % (Auto) 0.6 % 09/14/22 10:25 Neut # (Auto) 6.26 10^3/uL (1.8-7.7) 09/14/22 10:25 Lymph # (Auto) 1.8 10^3/uL (0.8-4.8) 09/14/22 10:25 Dickenson # (Auto) 0.6 10^3/uL (0.2-0.9) 09/14/22 10:25 Eos # (Auto) 0.1 10^3/uL (0.0-0.8) 09/14/22 10:25 Baso # (Auto) 0.1 10^3/uL (0.0-0.1) 09/14/22 10:25 Nucleated RBC % (auto) 0 % 09/14/22 10:25 Nucleated RBCs # 0.0 /100WBC 09/14/22 10:25 Sodium 140 mmol/L (136-145) 09/14/22 10:25 Potassium 4.2 mmol/L (3.5-5.1) 09/14/22 10:25 Chloride 102 mmol/L (98-107) 09/14/22 10:25 Carbon Dioxide 28 mmol/L (22-29) 09/14/22 10:25 Anion Gap 14.2 (5-19) 09/14/22 10:25 BUN 16 mg/dL (8-23) 09/14/22 10:25 Creatinine 0.5 mg/dL (0.5-0.9) 09/14/22 10:25 GFR Calculation 125.0 mL/min (90-130) 09/14/22 10:25 Glucose 83 mg/dL (65-115) 09/14/22 10:25 Calculated Osmolality 290 mOsm/kg (285-295) 09/14/22 10:25 Calcium 8.9 mg/dL (8.5-10.5) 09/14/22 10:25 Total Bilirubin 0.3 mg/dL (0.15-1.2) 09/14/22 10:25 AST 13 U/L (0-32) 09/14/22 10:25 ALT 11 U/L (0-33) 09/14/22 10:25 Alkaline Phosphatase 69 U/L (35-105) 09/14/22 10:25 Total Protein 7.3 g/dL (6.6-8.7) 09/14/22 10:25 Albumin 4.5 g/dL (3.5-5.2) 09/14/22 10:25 Globulin 2.8 g/dL (1.3-4.6) 09/14/22 10:25 Urine Color Yellow (Yellow) 09/14/22 10:25 Urine Appearance Clear (CLEAR) 09/14/22 10:25 Urine pH 6 (5-7) 09/14/22 10:25 Ur Specific [place] 1.015 (1.005-1.030) 09/14/22 10:25 Urine Protein Neg (Negative) 09/14/22 10:25 Urine Glucose (UA) Norm (Normal) 09/14/22 10:25 Urine Ketones Negative (Negative) 09/14/22 10:25 Urine Blood Neg (Negative) 09/14/22 10:25 Urine Nitrate Negative (Negative) 09/14/22 10:25 Urine Bilirubin Neg (Negative) 09/14/22 10:25 Urine Urobilinogen Norm mg/dL (Negative) 09/14/22 10:25 Ur Leukocyte Esterase Negative (Negative) 09/14/22 10:25 Blood Type O Positive 09/14/22 10:25 Rho(D) Type Positive 09/14/22 10:25 Antibody Screen Negative 09/14/22 10:25 Vitals Last Vital Signs Temp 97.5 F L 09/16/22 04:00 Pulse 76 09/16/22 04:00 Resp 15 09/16/22 04:00 BP 111/69 09/16/22 04:00 Pulse Ox 96 09/16/22 04:00 O2 Del Method Room Air 09/16/22 04:00 O2 Flow Rate 6 09/15/22 14:09 Discharge Plan Discharge Patient Disposition: Home Condition: Stable Prescriptions: New hydrocodone-acetaminophen 5-325 mg tablet 1 tab PO Q4H PRN (Reason: pain) Qty: 10 0RF docusate sodium [Colace] 100 mg capsule 100 mg PO BID Qty: 60 0RF acetaminophen 325 mg capsule 325 mg PO Q4H PRN (Reason: fever or pain) Qty: 60 0RF ibuprofen 800 mg tablet 800 mg PO TID PRN (Reason: pain) Qty: 60 0RF Continued omeprazole 40 mg capsule,delayed release(DR/EC) 40 mg PO DAILY estradiol 1 mg tablet 1 mg PO DAILY Rx Instructions: off 1 week; repeat cycle fluticasone propionate 50 mcg/actuation spray,suspension 1 spray intranasal DAILY Rx Instructions: administer into each nostril loratadine [Allergy Relief (loratadine)] 10 mg tablet 10 mg PO DAILY baclofen 10 mg tablet 10 mg PO .PRN diclofenac potassium 50 mg tablet 50 mg PO DAILY PRN (Reason: Dry Eyes) triamcinolone acetonide 0.1 % paste 1 applic dental BID PRN (Reason: Mouth Irritation) Rx Instructions: use after food and/or drink and/or oral hygiene artificial tears(hypromellose) 0.3 % drops 1 drp ophthalmic (eye) BID PRN (Reason: Dry Eyes) albuterol sulfate 90 mcg/actuation HFA aerosol inhaler 1 puff INHALATION PRN Incruse Ellipta 62.5 mcg/actuation blister with device INHALATION ipratropium bromide 42 mcg (0.06 %) spray,non-aerosol INTRANASAL 3XD Eye Allergy Relief Discharge Orders: Discharge Order (Routine); Ordered 09/16/22 Ordered By: Papo Dobbins Referrals: Papo Dobbins MD [Physician] - 2 weeks Discharge Diet: Soft Mechanical Discharge Activity: Limit activity as instructed Patient Instructions: Opioid Safety, Anterior Vaginal Repair (GEN), Bladder Sling for Women (GEN), Posterior Vaginal Repair (GEN) Activity Restrictions/Additional Instructions: 1. Please call [facility] on next working day to make your post-operative appointment in 2 weeks. 2. Please stay home until you come back to the clinic on first post-hospatilization check up. 3. Please follow instructions on your medications CAREFULLY. 4. If you have abdominal incision, do not cover it unless dressing is necessary because of drainage. OK to shower, but avoid bath. Leave steri-strips until they fall off. If they are still on one week after surgery, you may remove them. 5. If you had vaginal surgery or vaginal repair, Dr. Dobbins may instruct you to take SITZ bath. 6. Yellow, blood tinged odorous vaginal discharge is usually normal after hysterectomy or vaginal surgeries. 7. No SEXUAL INTERCOURSE, tampons, or douches until you are completely released from the post-operative care. 8. Avoid constipation by eating right and maybe using some Metamucil or Milk of Magnesia. 9. All prescription refills are given during the working hours. Please do no wait till it runs out. Call the clinic at [phone] before your medication runs out. The clinic will get in touch with your doctor to prescribe medications if necessary. 10. Please remain within 40 mile radius from our hospital because emergencies do happen now and then during the post-operative period. 11. If you have stairs at home, take one step at a time slowly and minimize the number of trips. It helps to stay in one floor for the next few days. No lifting except what you can lift by one hand until you are released from the post-operative care. 12. Driving is discouraged until you are well healed. It may be 3-4 weeks before you feel strong enough to drive. You should be able to turn and look through the rear window without pain and you should be able to push the brake pedal very hard without pain before you drive. No fast rules, but SAFETY should be your primary concern. DO NOT drive if you are on sedating medications such as narcotics. 13. Call the clinic (during working hours) to make urgent appointment or go to the Emergency room, if any of the following occurs: i. Vaginal bleeding becomes heavy, more than a period. ii. Incision becomes red and sore, or drains pus. iii. Your TEMPERATURE is over 100.4F or you have chill. iv. IV site becomes red and swollen (a little ``knot?? is usually OK) v. Persistent nausea and vomiting vi. Persistent constipation or diarrhea vii. Rash or allergic reaction to medications. Discharge Attestations WEIGHT CONTROL LECTURER Time Spent in Discharge Care*: greater than 30 min Coding Level of Care Code Acute Code for Chg Fwd Diagnoses
[2022-09-16 12:00] VITALS: BP 116/72; PULSE 82; RESP 18; TEMP 36.2; O2SAT 95
== END 2022-09-16 12:10 | disposition home or self-care (01) ==
LOC: OBGYN 19:43
PROVIDERS: Admitting Provider Obstetrics & Gynecology; PCP Family Medicine; Visit Provider Obstetrics & Gynecology
PROC: 0JQC0ZZ Repair Pelvic Region Subcutaneous Tissue and Fascia, Open Approach (ICD-10-PCS; CPT 57240; principal; 2022-09-15 12:00)
PROC: (CPT 57250; 2022-09-15 12:00)
PROC: (CPT 57288; 2022-09-15 12:00)
PROC: 0TJB8ZZ Inspection of Bladder, Via Natural or Artificial Opening Endoscopic (ICD-10-PCS; CPT 52000; 2022-09-15 12:00)
DX: N81.10 Cystocele, unspecified (principal); N81.6 Rectocele; N39.3 Stress incontinence (female) (male); Z79.890 Hormone replacement therapy; Z79.51 Long term (current) use of inhaled steroids; Z78.0 Asymptomatic menopausal state; M79.7 Fibromyalgia
CPT/HCPCS: 51992; 57260; 57267; 36415; 51798; 80053; 81003; 85025; 85027; 86850; 86900; 96374; 96376; C1713; C1762; G0378; J1100; J1650; J1885; J1956; J2405; J2704; J2710; J3010; J3370; J3490; J7030; J7040; J7050; J7121

== ENCOUNTER → 2022-10-13 15:17 | Outpatient (BNVA) | payer MEDICARE, MEDICAID, SELFPAY | PROVIDERS: PCP Family Medicine; Visit Provider Internal Medicine Pulmonary Disease | DX: J43.9 Emphysema, unspecified (principal); Z87.891 Personal history of nicotine dependence | CPT/HCPCS: 99204 ==

== ENCOUNTER → 2022-10-26 13:45 | Outpatient (BNVA) | payer MEDICARE, MEDICAID, SELFPAY | PROVIDERS: PCP Family Medicine; Visit Provider Obstetrics & Gynecology | DX: R30.0 Dysuria (principal) | CPT/HCPCS: 84315; 87086 ==

== ENCOUNTER 2022-11-02 12:59 | Outpatient (CLI) | payer MEDICARE, MEDICAID, SELFPAY ==
[2022-11-02 13:05] VITALS: BP 134/75
[2022-11-02 13:28] VITALS: PULSE 72; RESP 18; O2SAT 97
[2022-11-02] MEDS: albuterol 2.5 mg/3 mL Neb INHALATION (13:28)
[2022-11-02 13:33] VITALS: PULSE 73
== END 2022-11-02 13:00 | disposition home or self-care (01) ==
PROVIDERS: PCP Family Medicine; Visit Provider Internal Medicine Pulmonary Disease
DX: R06.02 Shortness of breath (principal); Z87.891 Personal history of nicotine dependence; R94.2 Abnormal results of pulmonary function studies
CPT/HCPCS: 94060; 94618; 94726; 94729; J7613

== ENCOUNTER 2022-11-03 12:49 | Outpatient (CLI) | payer MEDICARE, MEDICAID, SELFPAY ==
--- NOTE | 2022-11-03 13:00 | CT_ITS ---
WS: [id number] LDCT LUNG CANCER SCREENING HISTORY: cancer screen TECHNIQUE: Axial imaging performed from the apices to 1 cm below the costophrenic angles. Coronal and sagittal reformats are submitted with axial MIP series. All CT scans at [facility] use at least one of these dose optimization techniques: automated exposure control; mA and/or kV adjustment per patient size (includes targeted exams where dose is matched to clinical indication); or iterativ e reconstruction. DLP: 35.69 mGy.cm DIvol: Mean CTDIvol: 0.50 (mGy) COMPARISON: 12/09/2020 Diagnostic quality: Satisfactory Lungs: Hyperexpanded lungs with emphysema. There are a few scattered bulla and blebs. No mass or nodu le. Mild peripheral reticulations from interstitial lung disease. No endobronchial lesions. Heart: Normal size heart with no pericardial effusion.. Other findings: Moderate atherosclerosis aorta. No aneurysm. No adenopathy. Hepatic granulomata. Mild anterior wedging of T5. CT/CT lung screening [id number] IMPRESSION: LUNG-RADS: 1-Negative FOLLOW UP: 12 Month: Continue annual screening with LDCT OTHER FINDINGS (S MODIFIER): None.
== END 2022-11-03 12:50 | disposition home or self-care (01) ==
PROVIDERS: PCP Family Medicine; Visit Provider Internal Medicine Pulmonary Disease
DX: Z12.2 Encounter for screening for malignant neoplasm of respiratory organs (principal); Z87.891 Personal history of nicotine dependence
CPT/HCPCS: 71271

== ENCOUNTER → 2023-01-07 11:10 | Outpatient (BNVA) | payer MEDICARE, MEDICAID, SELFPAY | PROVIDERS: PCP Family Medicine; Visit Provider Internal Medicine Pulmonary Disease | DX: J43.9 Emphysema, unspecified (principal); Z12.2 Encounter for screening for malignant neoplasm of respiratory organs; Z87.891 Personal history of nicotine dependence | CPT/HCPCS: 99214 ==

== ENCOUNTER → 2023-03-22 14:23 | Outpatient (BNVA) | payer MEDICARE, MEDICAID, SELFPAY | PROVIDERS: PCP Family Medicine; Visit Provider Orthopaedic Surgery | DX: M48.062 Spinal stenosis, lumbar region with neurogenic claudication (principal); M54.2 Cervicalgia; M47.816 Spondylosis without myelopathy or radiculopathy, lumbar region | CPT/HCPCS: 72040; 72100; 99214 ==

== ENCOUNTER 2023-04-20 13:34 | Outpatient (CLI) | payer MEDICARE, MEDICAID, SELFPAY ==
--- NOTE | 2023-04-20 13:45 | MR_ITS ---
WS: [id number] MRI CERVICAL SPINE NONCONTRAST TECHNIQUE: Sagittal T1, T2 and STIR imaging. Axial T2, gradient, and fiesta imaging. CLINICAL INFORMATION: cervical pain COMPARISON: MRI 2019 FINDINGS: Straightening of the normal cervical lordosis. No high-grade central canal narrowing. Cord signal is normal. C2-C3: Mild osteophytic ridging. Mild facet arthropathy. Mild LEFT bony foraminal narrowing. C3-C4: Mild disc osteophytic ridging. Moderate facet arthropathy worse on the LEFT. Mild bilateral pily ny foraminal narrowing LEFT greater than RIGHT. C4-C5: Mild disc osteophytic ridging. Moderate to advanced LEFT facet arthropathy. Mild LEFT and no s ignificant RIGHT foraminal narrowing. C5-C6: Disc osteophyte complex with endplate ridging. Mild RIGHT and no significant LEFT foraminal na rrowing. Spinal canal is patent. Moderate facet arthropathy. C6-C7: Tiny shallow central disc bulging. Spinal canal and foramen are patent. Mild facet arthropathy . C7-T1: Normal.. Visualized brain stem structures: Normal. Prevertebral soft tissues: Normal. IMPRESSION: 1. Straightening of the normal cervical lordosis. Cord signal is normal. 2. Mild spondylitic changes progressed compared to 2019. 3. Mild bony foraminal narrowing worse at bilateral C3-4, LEFT C4-5, and RIGHT C5-6. 4. Moderate facet arthropathy worse at LEFT C3-4 and moderate to advanced facet arthropathy LEFT C4- 5. Mild edema in the LEFT C3-4 facets. 5. Tiny central protrusions C3-C4 C4-C5 and C5-C6 without significant central canal stenosis.
== END 2023-04-20 13:35 | disposition home or self-care (01) ==
LOC: RAD 13:35
PROVIDERS: PCP Family Medicine; Visit Provider Orthopaedic Surgery
DX: M47.812 Spondylosis without myelopathy or radiculopathy, cervical region (principal); M48.02 Spinal stenosis, cervical region
CPT/HCPCS: 72141

== ENCOUNTER → 2023-04-22 10:31 | Outpatient (BNVA) | payer MEDICARE, MEDICAID, SELFPAY | PROVIDERS: PCP Family Medicine; Visit Provider Family Medicine | DX: Z01.818 Encounter for other preprocedural examination (principal) | CPT/HCPCS: 80053; 81000; 85025 ==

== ENCOUNTER 2023-04-27 05:46 | Day surgery (SDC) | payer MEDICARE, MEDICAID, SELFPAY ==
[2023-04-27] VITALS (12 sets, daily range): BP systolic 108–139; BP diastolic 57–73; PULSE 80–102; RESP 12–18; TEMP 36.1–36.2; O2SAT 92–100; BMI 20.9
--- NOTE | 2023-04-27 | XR_ITS ---
WS: [id number] XR lumbar spine 1V [id number] REASON FOR EXAM: L4-5 Decompression, OR pic FINDINGS: Surgical device overlies the left lateral aspect of the L4-L5 interspace. IMPRESSION: Intraoperative lumbar localization.
[2023-04-27] MEDS: sodium chloride 0.9% 1,000 ML 30 ML IV (06:10)
--- NOTE | 2023-04-27 06:24 | ANES.PREANE2 ---
Pre-Anesthetic Assessment Height/Weight: Height 1.47 m Weight 45.359 kg Temp Pulse Resp BP Pulse Ox O2 Del Method 97.0 F L 82 18 139/69 94 Room Air 04/27/23 06:14 04/27/23 06:14 04/27/23 06:14 04/27/23 06:14 04/27/23 06:14 04/27/23 06:14 Preop Diagnosis: Lumbar stenosis Operation Date: 04/27/23 07:00 Proposed Procedures p Lumbar Spine Decompression Lumbar Decompression(Not Applicable) - Oliver Preston, Familial anesthetic complications: None Was Beta Dayne taken within 24 hours: N/A Was Clonidine taken within 24 hours: N/A Social No alcohol and No tobacco former smoker Exam alert and oriented x 3 Airway Mallampati: Class II Dentition: chipped and partials History/ROS No significant history except as noted and No significant complaints Pulmonary Chronic Obstructive Pulmonary Disease (Severe in L lung) CV/HEM None reported None reported GI Gastroesophageal Reflux Disease Metabolic None reported Musc/skel Fibromyalgia Neuropsych None reported Anesthetic Plan ASA status: 3 Anesthesia: General Risk of > 500 ml blood loss (7ml/kg in children): No Medications/Allergies Home Medications Medication Instructions Recorded Confirmed Last Taken Type estradiol 1 mg tablet 1 mg PO DAILY 11/27/20 04/26/23 04/26/23 History fluticasone propionate 50 1 spray intranasal DAILY 11/27/20 04/26/23 04/05/23 History mcg/actuation nasal spray,suspension loratadine 10 mg tablet (Allergy 10 mg PO DAILY 11/27/20 04/26/23 04/13/23 History Relief (loratadine)) omeprazole 40 mg capsule,delayed 40 mg PO DAILY 11/27/20 04/26/23 04/19/23 History release albuterol sulfate 90 mcg/actuation 1 puff inhalation PRN 01/02/21 04/26/23 03/30/23 History aerosol inhaler diclofenac potassium 50 mg tablet 50 mg PO DAILY PRN Inflammation 08/04/22 04/26/23 04/05/23 History triamcinolone acetonide 0.1 % 1 applic dental BID PRN Mouth 08/04/22 04/27/23 Unknown History dental paste Irritation baclofen 10 mg tablet 10 mg PO .PRN 08/16/22 04/27/23 Unknown History Eye Allergy Relief See Rx Instructions .Route .COMPLEX 09/14/22 04/27/23 09/15/22 History artificial tears(hypromellose) 0.3 1 drp ophthalmic (eye) BID PRN Dry 09/14/22 04/26/23 04/26/23 History % eye drops Eyes ipratropium bromide 42 mcg (0.06 See Rx Instructions .Route .COMPLEX 09/14/22 04/26/23 04/25/23 History %) nasal spray acetaminophen 325 mg capsule 325 mg PO Q4H PRN fever or pain 09/16/22 04/27/23 Unknown Rx #60 caps docusate sodium 100 mg capsule 100 mg PO BID #60 caps 09/16/22 04/26/23 04/05/23 Rx (Colace) umeclidinium 62.5 mcg-vilanterol 1 inh inhalation DAILY 10/13/22 04/26/23 04/19/23 History 25 mcg/actuation powdr for inhalation (Anoro Ellipta) nicotine (polacrilex) 2 mg gum 2 mg buccal Q2H #20 ea 01/08/23 04/26/23 02/14/23 Rx (Nicorette) oxybutynin chloride 5 mg tablet 5 mg PO BID #180 tabs 03/22/23 04/26/23 04/26/23 Rx meclizine 25 mg tablet 25 mg PO 2XD 04/26/23 04/26/23 04/13/23 History Allergies Allergy/AdvReac Type Severity Reaction Status Date / Time amoxicillin Allergy Intermediate Unknown Verified 04/27/23 05:58 cinnamon Allergy ADR-Itching Verified 04/27/23 05:58 prednisone AdvReac Severe ADR-Insomni Verified 04/27/23 05:58 a Current Medications Generic Name Dose Route Start Last Admin Trade Name Freq PRN Reason Stop Dose Admin Sodium Chloride 1,000 mls @ 30 mls/hr 04/27/23 06:00 04/27/23 06:10 Sodium Chloride 0.9% IV 04/28/23 05:59 30 mls/hr .Q24H ZHEN Administration PFSH Anesthesia Medical History Seasonal allergies Fibromyalgia Mass on back Surgical History History of repair of rectocele (~09/15/22) Anterior colporrhaphy augmented with allograft. Single incision mid urethral sling. Posterior colporraphy. Cystoscopy. Coloplast Altis single incision mid urethral sling. Performed by Dr. Dobbins for rectocele stage 3, cystocele stage 1, stress incontinence. History of rotator cuff surgery left History of surgery cyst removal History of eyelid surgery 2013 History of colonoscopy History of hysterectomy 2000 History of surgery on right wrist cyst removal Family History Mother Heart disease Hypertension Stroke Father Heart disease Hypertension Stroke Sister Hypertension Brother Hypertension Family/Other Breast cancer Aunt/Paternal Other CAD (coronary artery disease) Cancer Dementia Diabetes Denies family history of Colon cancer Ovarian cancer Uterine cancer Thyroid disease Social History Smoking and tobacco/nicotine status: former use of tobacco/nicotine Quit status (tobacco/nicotine): has quit using Year quit tobacco: September 2021 Former quit date comment: 1-2 ppd X 45 years Substance/Drug Use: never Data Anesthesia Cardiac Studies: No Data to Display
--- NOTE | 2023-04-27 06:29 | W.PM.OPSUD ---
Surgery/Procedure H&P Update DATE OF PROCEDURE: April 27, 2023 DATE H&P PERFORMED: 04/22/23 H&P UPDATE INFORMATION: I have reviewed H&P completed within last 30 days, I have examined patient prior to procedure and No changes to prior documentation PREOP DIAGNOSIS: Lumbar stenosis PLANNED PROCEDURE: Operation Date: 04/27/23 07:00 Proposed Procedures p Lumbar Spine Decompression Lumbar Decompression(Not Applicable) - Oliver Preston DO
[2023-04-27] MEDS: ceFAZolin 2,000 MG in sodium chloride 0.9% (plus) 50 ML 100 MG IV (07:05)
[2023-04-27] MEDS: lidocaine-epi 2% 20 mL INJ INJECTION (07:34)
--- NOTE | 2023-04-27 08:26 | PM.OP ---
Operative Report Date of procedure: April 27, 2023 Pre-op diagnosis: Lumbar stenosis with neurogenic claudication Post-op diagnosis: same Procedure done: 1. L4-5 laminectomy with partial facetectomy Surgeon: Oliver Preston DO Estimated blood loss (mL): 5 Procedure: L4-5 laminectomy with partial facetectomy Patient is brought to the operative suite. After undergoing anesthesia they are placed in the prone position. All areas of impingement are well padded. Patient is then prepped and draped in the normal sterile fashion. A skin incision is made over the L4-5 level. This is confirmed under c-arm guidance. A series of dilators are passed and the tubular retractor is docked on the L4 lamina. A bovie is used to clear the soft tissue off the lamina and the L 4/5 facet joint. A high speed vivienne is then used to perform the laminectomy and take down the medial aspect of the L 4/5 facet joint. A kerrison rongeure was then used to take down the remaining lamina and smooth the edge of the laminectomy up to the point where the ligamentum flavum attaches. Attention was then brought to the medial aspect of the facet joint. The remaining medial aspect of the superior and inferior aspect of the facet joint were taken down with the kerrison from the pedicle of L4 to L 5. The facet joint had significant hypertrophy. Attention was then brought to the Ligamentum Flavum. The ligament was taken down from the lamina of L4 to L5 and out medially to the remaining facet joint. The ligament was thick. The dura was then exposed. The dura was in good repair. The L4 nerve was then traced with a curette out the L4/5 foramen and found to be adequately decompressed. The L5 nerve was traced with a curette around the L5 pedicle. The lateral recess was opened with a kerrison helping to further decompress the L5 nerve. Wound is then irrigated copiously with saline and surgiflo is used to stop any bleeding. The tubular retractor is removed and the wound is closed with vicryl and monocryl suture. Glue is then used to protect the wound. A sterile dressing is then placed. Patient was then placed in the supine position and transferred to the PACU in stable condition.
[2023-04-27] MEDS: fentaNYL 50 mcg/mL INJ 2mL IVP (08:45)
[2023-04-27] MEDS: HYDROcodone-acetaminophen 5-325 mg Tablet 1 TAB PO (09:08)
--- NOTE | 2023-04-27 19:28 | ANE.PACU2 ---
Inpatient post-anesthesia follow up: Airway intact: Yes Vital signs: Temperature 97.0 F Pulse Rate 85 Respiratory Rate 18 Blood Pressure 125/61 Pulse Oximetry 94 Oxygen Delivery Me thod Room Air Oxygen Flow Rate 6 Fraction of Inspir ed Oxygen Hydration adequate: Yes Nausea and vomiting: No Pain level: 3 Mental status: Baseline
== END 2023-04-27 10:00 | disposition home or self-care (01) ==
PROVIDERS: PCP Family Medicine; Visit Provider Orthopaedic Surgery
PROC: (CPT 63005; principal; 2023-04-27 07:00)
DX: M48.062 Spinal stenosis, lumbar region with neurogenic claudication (principal); Z87.891 Personal history of nicotine dependence; J44.9 Chronic obstructive pulmonary disease, unspecified; K21.9 Gastro-esophageal reflux disease without esophagitis; M79.7 Fibromyalgia
CPT/HCPCS: 63047; 72020; 76000; J0690; J2250; J2704; J2710; J3010; J3490; J7030

== ENCOUNTER → 2023-05-12 13:46 | Outpatient (BNVA) | payer MEDICARE, MEDICAID, SELFPAY | PROVIDERS: PCP Family Medicine; Visit Provider Orthopaedic Surgery | DX: Z47.89 Encounter for other orthopedic aftercare | CPT/HCPCS: 99024 ==

== ENCOUNTER → 2023-06-10 13:38 | Outpatient (BNVA) | payer MEDICARE, MEDICAID, SELFPAY | PROVIDERS: PCP Family Medicine; Visit Provider Orthopaedic Surgery | DX: Z47.89 Encounter for other orthopedic aftercare | CPT/HCPCS: 99024 ==

== ENCOUNTER → 2023-07-19 12:55 | Outpatient (BNVA) | payer MEDICARE, MEDICAID, SELFPAY | PROVIDERS: PCP Family Medicine; Visit Provider Orthopaedic Surgery | DX: Z98.890 Other specified postprocedural states (principal) | CPT/HCPCS: 99024 ==

== ENCOUNTER 2023-07-26 16:25 | Outpatient (CLI) | payer MEDICARE, MEDICAID, SELFPAY ==
--- NOTE | 2023-07-26 16:45 | MR_ITS ---
WS: [id number] MRI LUMBAR SPINE NONCONTRAST TECHNIQUE: Sagittal T1, T2 and STIR imaging. Axial T1 and T2 imaging. CLINICAL INFORMATION: back pain COMPARISON: MRI 03/31/2022 FINDINGS: Mild lumbar curve. No acute compression. No high-grade central canal stenosis. Slight anterolisthesis L4 on L5 unchanged. L1-L2: Normal. L2-L3: Mild annular bulging. Spinal canal and foramina are patent. L3-L4: Mild annular bulging. Mild facet arthropathy. Spinal canal and foramen are patent. L4-L5: Slight anterolisthesis L4 on L5. Narrowing of the RIGHT subarticular recess. Impingement trave rsing RIGHT L5 nerve root. This appears progressed compared to previous. Spinal canal and foramen are patent. Mild to moderate facet arthropathy. L5-S1: Mild annular bulging with slight contact RIGHT S1 nerve root.. Spinal canal and foramen are p atent. Mild to moderate facet arthropathy. Visualized pelvic bony structures: Normal. Paravertebral soft tissues: Normal. 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 IMPRESSION: 1. Slight anterolisthesis L4 on L5 with mild disc bulging. Impingement RIGHT subarticular recess and traversing RIGHT L5 nerve root progressed compared to previous. 2. Mild annular bulge L5-S1 with slight contact RIGHT S1 nerve root. 3. No other significant changes. 4. Mild to moderate facet arthropathy L4-L5 and L5-S1. 5. No other acute findings.
== END 2023-07-26 16:26 | disposition home or self-care (01) ==
LOC: RAD 16:25
PROVIDERS: PCP Family Medicine; Visit Provider Orthopaedic Surgery
DX: Z98.890 Other specified postprocedural states (principal); M51.36 Other intervertebral disc degeneration, lumbar region; M47.816 Spondylosis without myelopathy or radiculopathy, lumbar region
CPT/HCPCS: 72148

== ENCOUNTER → 2023-08-11 14:15 | Outpatient (BNVA) | payer MEDICARE, MEDICAID, SELFPAY | PROVIDERS: PCP Family Medicine; Visit Provider Orthopaedic Surgery | DX: Z09 Encounter for follow-up examination after completed treatment for conditions other than malignant neoplasm (principal) | CPT/HCPCS: 99024 ==

== ENCOUNTER → 2023-11-10 13:46 | Outpatient (BNVA) | payer MEDICARE, MEDICAID, SELFPAY | PROVIDERS: PCP Family Medicine; Visit Provider Orthopaedic Surgery | DX: Z98.890 Other specified postprocedural states (principal) | CPT/HCPCS: 99213 ==

== ENCOUNTER → 2024-02-16 12:49 | Outpatient (BNVA) | payer MEDICARE, MEDICAID, SELFPAY | PROVIDERS: PCP Family Medicine; Visit Provider Orthopaedic Surgery | DX: Z98.890 Other specified postprocedural states (principal) | CPT/HCPCS: 99213 ==

== ENCOUNTER → 2024-09-27 15:30 | Outpatient (BNVA) | payer MEDICARE, MEDICAID, SELFPAY | PROVIDERS: PCP Family Medicine; Visit Provider Obstetrics & Gynecology | DX: N32.81 Overactive bladder (principal) | CPT/HCPCS: 81000 ==